=== PATIENT | female | born 1945 ===

== ENCOUNTER 2017-06-09 05:26 | Day surgery (SDC) | payer MEDICARE, OTHER ==
[2017-06-09] VITALS (16 sets, daily range): BP systolic 115–153; BP diastolic 41–75
[~2017-06-09] VITALS: Ht 157.5 cm; Wt 68.5 kg
--- NOTE | 2017-06-09 00:46 | Pre-op HX & Phy Repo 2 SIG ---
DATE OF ADMISSION: 06/09/2017 Pertinent History: The patient is a 71-year-old, Latin female complaining of right upper quadrant pain episodes and abdominal distention, worse after eating heavy or "fatty meals." There is no history of jaundice or dark urine. No emergency room visits. Because of the recent most bothersome attack, she came to see her attending physician, who obtained an abdominal ultrasound, which revealed multiple gallstones reason for this visit. She denies any history of having known about the gallstones in the recent past. The gallbladder shows 2 gallstones of 2.13 cm x 0.9 cm and 1.57 cm x 0.97 cm on the abdominal ultrasound. Past Medical History: Pertinent for history of gastroesophageal reflux disease with mild esophagitis, abdominal pain, diabetes mellitus, and hypertension. Medications: She takes aspirin 81 mg a day (stopped one week ago), atorvastatin 40 mg one p.o. daily, metformin 1000 mg tablet extended-release 24 hour once a day, gabapentin 300 mg capsules at bedtime, Bentyl 10 mg capsule t.i.d. p.r.n., and fleets enema p.r.n. ALLERGIES: None known. REVIEW OF SYSTEMS: None pertinent except for above. PHYSICAL EXAMINATION: Vital Signs: Blood pressure is 130/80, temperature 98.3 degrees, pulse 80, and respirations 20. Weight 160 pounds, height 67.5 inches, and BMI of 34. HEENT: Extraocular movements were intact. Mouth and throat are clear. NECK: Supple. LUNGS: Clear. BREASTS: Pendulous. No masses. HEART: Rhythmic and regular. No murmurs. Abdomen: Soft and flat. Bowel sounds are normoactive. There is 1+ right upper quadrant tenderness, no masses, no scars. GENITALIA: Normal external female genitalia. PELVIC: Deferred. RECTAL: Normal tone. No masses. Heme-negative stool. EXTREMITIES: Good range of motion. No edema or cyanosis. IMPRESSION: 1. Cholelithiasis and chronic cholecystitis. 2. Diabetes mellitus. 3. Hypertension. Plan: The patient is being admitted to undergo a laparoscopic cholecystectomy as an outpatient. She understands the nature of the procedure, the indications, the risks, the benefits, and possible complications and she wishes to proceed. Ray Moser M.D. DR: RENALDO JOB#: [id number] CC:
--- NOTE | 2017-06-09 06:51 | Pre-Procedure Note/Attestation ---
Pre-Procedure Note/Attestation Complete Prior to Procedure Procedure Narrative: laparoscopic cholecystectomy, possible open Attestation I attest that I discussed the nature of the procedure; its benefits; risks and complications; and alternatives (and the risks and benefits of such alternatives ), prior to the procedure, with the patient (or the patient's legal branch customer service representative). I attest that, if there was a reasonable possibility of needing a blood transfusion, the patient (or the patient's legal branch customer service representative) was given the [facility] standardized written summary, pursuant to the [place] Blood Safety Act ([place] Health and Safety Code # 1645, as amended). I attest that I re-evaluated the patient just prior to the surgery and that there has been no change in the patient's H&P, except as documented below: REHANA CULP Jun 09, 2017 06:51
[2017-06-09] MEDS ORDERED: Bupivacaine w/Epi 0.25% 30ml Vial INJ ONE (07:00)
[2017-06-09] MEDS ORDERED: LINZESS145 MCG PO (07:32)
[2017-06-09] MEDS ORDERED: OMEPRAZOLE40 M1 ORAL (07:32)
[2017-06-09] MEDS ORDERED: BISACODYL5 MG ORAL (07:32)
[2017-06-09] MEDS ORDERED: ACETAMINOPHEN-1 EAC1 ORAL (07:32)
[2017-06-09] MEDS ORDERED: DICYCLOMINE HCL10 MG PO (07:32)
[2017-06-09] MEDS ORDERED: NS Irrig 1000ml IRRIG ONE (08:25)
[2017-06-09] MEDS ORDERED: Sterile Water Irrig 1000ml IRRIG ONE (08:30)
[2017-06-09] MEDS ORDERED: Metoclopramide 10mg/2ml Inj ONE (08:30)
[2017-06-09] MEDS ORDERED: Succinylcholine 20mg/ml 10ml vial ONE (08:30)
[2017-06-09] MEDS ORDERED: NS Irrig 1000ml ONE (08:30)
[2017-06-09] MEDS ORDERED: Zemuron 50mg/5ml Inj IV ONE (08:30)
[2017-06-09] MEDS ORDERED: ePHEDrine 50mg/ml Inj ONE (08:30)
[2017-06-09] MEDS ORDERED: Lidocaine 1% MPF 10mg/ml 5ml ONE (08:30)
[2017-06-09] MEDS ORDERED: fentaNYL 100 mcg/2 mL IV ONE (08:30)
[2017-06-09] MEDS ORDERED: LR 1000ml ONE (08:30)
[2017-06-09] MEDS ORDERED: Ketorolac 30mg Inj ONE (08:30)
[2017-06-09] MEDS ORDERED: Propofol 200mg/20ml IV ONE (08:30)
--- NOTE | 2017-06-09 09:44 | Brief Operative Note ---
Immediate Post Operative Note Operative Note Pre-op Diagnosis: cholelithiasis , cholecystitis. Procedure: laparoscopic cholecystectomy Post-op Diagnosis: same as pre-op Surgeon: beti Heel Turner: luis e Anesthesiologist: katelin Anesthesia: general Specimen: yes Complications: none Condition: stable Fluids: lr Estimated Blood Loss: minimal Drains: none Implant(s) used?: No REHANA CULP Jun 09, 2017 09:44
[2017-06-09] MEDS ORDERED: Metoclopramide 10mg/2ml Inj IVP PRN (09:45)
--- NOTE | 2017-06-09 09:46 | Immediate Post-Op Evaluation ---
Immediate Post-Op Evalulation Immediate Post-Op Evalulation Procedure: Lap Jeanie Date of Evaluation: Jun 09, 2017 Time of Evaluation: 09:45 IV Fluids: 600 Blood Pressure Systolic: 151 Blood Pressure Diastolic: 47 Pulse Rate: 59 Respiratory Rate: 14 O2 Sat by Pulse Oximetry: 100 Temperature (Fahrenheit): 97.2 Nausea: No Vomiting: No Complications none Patient Status: awake, reacts, patent Hydration Status: adequate Drug: ancef Given Within 1 Hr of Incision: Yes Time Given: 08:40 SPENCER DEJESUS CRNA Jun 09, 2017 09:46
--- NOTE | 2017-06-09 09:49 | Anethesia Preoperative Eval ---
Anesthesia Pre-op PMH/ROS General Date of Evaluation: Jun 09, 2017 Time of Evaluation: 09:15 Anesthesiologist: katelin ASA Score: ASA 2 Mallampati Score Class I : Soft palate, uvula, fauces, pillars visible Class II: Soft palate, uvula, fauces visible Class III: Soft palate, base of uvula visible Class IV: Only hard plate visible Mallampati Classification: Class II Surgeon: beti Diagnosis: cholecystitis Surgical Procedure: Lap Jeanie Anesthesia History: none Family History: no anesthesia problems Allergies: Coded Allergies: No Known Allergies (Unverified , 06/08/17) Medications: see eMAR Past Medical History Cardiovascular: Denies: HTN, CAD, RI, valve dz, arrhythmia, other Pulmonary: Denies: asthma, COPD, JULIO CÉSAR, other Gastrointestinal/Genitourinary: Denies: GERD, CRI, ESRD, other Neurologic/Psychiatric: Denies: dementia, CVA, depression/anxiety, TIA, other Endocrine: Reports: DM HEENT: Denies: cataract (L), cataract (R), glaucoma, ASA'CARSARMIUT (L), ASA'CARSARMIUT (R), other Hematology/Immune: Denies: anemia, DVT, bleeding disorder, other Musculoskeletal/Integumentary: Denies: OA, RA, DJD, DDD, edema, other Other: obesity PSxH Narrative: ex lap Anesthesia Pre-op Phys. Exam Physician Exam Last Vital Signs Date Time Temp Pulse Resp B/P (MAP) Pulse Ox O2 Delivery O2 Flow Rate FiO2 06/09/17 07:15 97.8 65 18 153/70 96 Room Air Constitutional: NAD Neurologic: CN 2-12 intact Cardiovascular: RRR Respiratory: CTA Gastrointestinal: S/NT/ND Airway Exam Mallampati Classification 2 Mallampati Score: Class II MO: full ROM: full Dentures: upper Anesthesia Pre-op A/P Studies Pre-op Studies: EKG - sr Risk Assessment & Plan Plan: general Status Change Before Surgery: No Pre-Antibiotics Drug: ancef Given Within 1 Hr of Incision: Yes Time Given: 08:40 SPENCER DEJESUS CRNA Jun 09, 2017 09:49
[2017-06-09] MEDS: fentaNYL 100 mcg/2 mL IV PRN ×3 (10:35→11:00)
[2017-06-09] MEDS ORDERED: Hydromorphone 0.5mg/0.5ml inj IVP PRN (11:30)
[2017-06-09] MEDS ORDERED: DiphenhydrAMINE 50mg/ml Inj IVP PRN (11:30)
[2017-06-09] MEDS ORDERED: fentaNYL 100 mcg/2 mL IV PRN (11:30)
--- NOTE | 2017-06-09 12:26 | 48 Hour Post Anesthesia Eval ---
Post Anesthesia Evaluation Procedure: Lap Jeanie Date of Evaluation: Jun 09, 2017 Time of Evaluation: 12:25 Blood Pressure Systolic: 134 0: 64 Pulse Rate: 63 Respiratory Rate: 14 O2 Sat by Pulse Oximetry: 100 Airway: patent Nausea: No Vomiting: No Hydration Status: adequate Mental Status/LOC: patient returned to baseline Follow-up Care/Observations: per surgery Post-Anesthesia Complications: none Follow-up care needed: N/A SPENCER DEJESUS CRNA Jun 09, 2017 12:26
[2017-06-09] MEDS ORDERED: HYDROmorphone 1mg/ml Carpuject SUBQ PRN (14:01)
[2017-06-09] MEDS ORDERED: Tylenol #3 tab (300mg/30mg) ORAL PRN (14:01)
--- NOTE | 2017-06-09 19:16 | Operative Note - Dictated ---
DATE OF OPERATION: 06/09/2017 SURGEON: Ray Moser M.D. DONKEY ENGINE FIRER/FIREMAN: Holly Ramirez M.D. ANESTHESIOLOGIST: Charisma nurse electro plater. ANESTHESIA: General endotracheal tube. PREOPERATIVE DIAGNOSIS: Cholelithiasis and chronic cholecystitis. POSTOPERATIVE DIAGNOSIS: Cholelithiasis and chronic cholecystitis. NAME OF OPERATION: 1. Laparoscopic cholecystectomy. 2. Lysis of adhesions. Findings and Indications: The patient is a very pleasant 72-year-old Latin female with a history of having undergone prior exploratory laparotomy through a low midline incision for a perforated appendix. I advised the patient to undergo a laparoscopic cholecystectomy with possible open because of the possible adhesions, after it was found that the patient has had increasing abdominal pain in the epigastrium and the right upper quadrant with fatty meals and sometimes up into the left upper quadrant. There is no history of jaundice or dark urine. An abdominal ultrasound reveals two small to medium-size stones, normal size common bile duct, and normal gallbladder wall. At surgery, indeed multiple adhesions were found above the umbilicus by the liver and the small bowel on the right upper quadrant as well as the colon and in the left upper quadrant near the stomach and small bowel. All these were lysed to be able to create a nice space. The procedure was done uneventfully. The gallbladder was indeed slightly thickened. There were some old adhesions around it likely secondary to biliary colic or cholecystitis. The cystic duct was tiny as was the common bile duct and the procedure was done uneventfully. Procedure: With the patient lying in the supine position on the operating table, under general anesthesia with the entire abdominal region, prepped and draped in the usual sterile fashion with Betadine, an supraumbilical small incision was made, the Veress needle was introduced, the drop test was normal and the CO2 was insufflated with three liters creating a pressure of 15 mmHg and at this point, a 5 mm trocar was advanced, which a laparoscope was placed visualizing the above findings. A separate right lower quadrant trocar was placed under direct visualization to be able to mobilize the multiple adhesions by blunt and sharp means from both sides, and then the subxiphoid 11 mm trocar was placed and a second 5 mm trocar in the right mid abdomen. Through here the gallbladder fundus was then carefully mobilized from the adhesions around it, and the dissection was continued in a retrograde fashion down to this cystic duct and a critical view was obtained and then the area was irrigated, the cystic duct was double clipped and transected as was the cystic artery and then the gallbladder was removed off the liver bed by blunt and sharp means obtaining hemostasis with the cautery. The gallbladder was then placed into an EndoCatch device and removed through the subxiphoid incision and sent to pathology. The subhepatic and subdiaphragmatic areas were irrigated with normal saline ample amounts and then it was aspirated. The CO2 was then deflated. The trocars were removed and the incision was closed with 0 Vicryl fascial sutures and 4-0 Vicryl subcuticular sutures and Steri-Strips. Marcaine 0.5% with epinephrine 15 mL was injected for long-acting local anesthetic. The patient tolerated the procedure well. Estimated blood loss was less than 5 mL. Sponge and needle counts were correct. She went to the recovery room in stable condition. Ray Moser M.D. DR: LOREE JOB#: [id number] CC:
== END 2017-06-09 13:55 | disposition home or self-care (01) ==
LOC: SUR 05:26
DX: K80.10 Calculus of gallbladder with chronic cholecystitis without obstruction (principal); K66.0 Peritoneal adhesions (postprocedural) (postinfection); K21.9 Gastro-esophageal reflux disease without esophagitis; E11.9 Type 2 diabetes mellitus without complications; I10 Essential (primary) hypertension; Z79.82 Long term (current) use of aspirin; Z79.84 Long term (current) use of oral hypoglycemic drugs
CPT/HCPCS: 47562; 49329; 82962; J0330; J0690; J1200; J1885; J2405; J2704; J2765; J3010; J7120; 94003; 94150